=== PATIENT | male | born 1990 | race Caucasian/White ===

== ENCOUNTER 2019-11-13 13:44 | Emergency (ER) | payer OTHER ==
[~2019-11-13] VITALS: Ht 180.3 cm; Wt 63.6 kg
[2019-11-13] MEDS ORDERED: MORPHINE SULFATE 4 MG/ML SYRINGE ONE (14:43)
[2019-11-13] MEDS ORDERED: ONDANSETRON HCL 4 MG/2 ML VIAL ONE (14:43)
[2019-11-13] MEDS ORDERED: CeFAZolin 1 GM/DEXTROSE 50 ML IV ONE ×2 (14:44→15:30)
[2019-11-13] MEDS ORDERED: PERTUSS(ACELL),DIPH,TET VAC/PF 0.5 ML VIAL IM ONE ×2 (14:44→14:45)
[2019-11-13] MEDS ORDERED: SODIUM CHLORIDE 0.9% 1,000 ML IV ONE (14:45)
[2019-11-13 15:57] LABS: BASOPHILS % (AUTO) 0.4 % (0.0-2.0); EOSINOPHILS % (AUTO) 1.4 % (1.0-6.0); HEMATOCRIT 42.1 % (41-53); HEMOGLOBIN 14.5 g/dL (13.5-17.5); LYMPHOCYTES # (AUTO) 1.8 K/uL (1.0-4.8); LYMPHOCYTES % (AUTO) 19.3 % (22.0-44.0); MEAN CORPUSCULAR HEMOGLOBIN 30.5 pg (26.0-34.0); MEAN CORPUSCULAR HGB CONC 34.4 G/dL (31.0-37.0); MEAN CORPUSCULAR VOLUME 89 fL (80-100); MONOCYTES # (AUTO) 0.5 K/uL (0.1-1.0); MONOCYTES % (AUTO) 5.3 % (2.0-9.0); NEUTROPHILS # (AUTO) 6.9 K/uL (1.8-7.7); NEUTROPHILS % (AUTO) 73.6 % (40.0-70.0); PLATELET COUNT (AUTO) 304 K/uL (150-450); RED BLOOD CELL COUNT(AUTO) 4.74 MIL/uL (4.50-5.90); RED CELL DISTRIBUTION WIDTH 12.8 % (11.5-14.5)
[2019-11-13] MEDS ORDERED: ONDANSETRON HCL 4 MG/2 ML VIAL IVP ONE (16:00)
[2019-11-13] MEDS ORDERED: MORPHINE SULFATE 4 MG/ML SYRINGE IVP ONE ×2 (16:00)
[2019-11-13 16:14] LABS: ANION GAP 8 mmol/L (8-16); CALCIUM, TOTAL 9.2 mg/dL (8.8-10.5); CARBON DIOXIDE 30 mmol/L (22-29); CHLORIDE 103 mmol/L (98-107); CREATININE 0.82 mg/dL (0.60-1.30); GLOMERULAR FILTR. RATE CALC > 60 mL/min (>60); GLUCOSE,RANDOM 105 mg/dL (70-110); POTASSIUM 4.1 mmol/L (3.5-5.1); SODIUM SERUM 141 mmol/L (136-145); UREA NITROGEN, BLOOD 14 mg/dL (7-18)
[2019-11-13 16:20] LABS: ALANINE AMINOTRANSFERASE 35 U/L (12-78); ALBUMIN 4.5 g/dL (3.4-5.0); ALKALINE PHOSPHATASE 43 U/L (46-116); ASPARTATE AMINOTRANSFERASE 32 U/L (15-37); BILIRUBIN,TOTAL 0.9 mg/dL (0.1-1.0); PHOSPHORUS 3.9 mg/dL (2.5-4.9); TOTAL PROTEIN, SERUM 7.8 g/dL (6.4-8.2)
[2019-11-13 17:00] VITALS: BP 134/90
== END 2019-11-13 17:10 | disposition short-term general hospital (02) ==
LOC: EMS 13:47
DX: T22.311A Burn of third degree of right forearm, initial encounter (principal); T22.312A Burn of third degree of left forearm, initial encounter; X17.XXXA Contact with hot engines, machinery and tools, initial encounter; Y93.89 Activity, other specified; Y92.89 Other specified places as the place of occurrence of the external cause; Y99.0 Civilian activity done for income or pay
CPT/HCPCS: 16020; 36415; 80053; 83735; 84100; 85025; 90471; 90715; 96365; 96375; 96376; 99291; J0690; J2270; J2405